=== PATIENT | female | born 1940 | race Caucasian/White ===

== ENCOUNTER → 2017-10-05 | Outpatient (CLI) | payer MEDICARE | END | disposition home or self-care (01) | LOC: CVU 12:39 | PROVIDERS: ATTEND Internal Medicine Cardiovascular Disease | DX: I65.23 Occlusion and stenosis of bilateral carotid arteries (principal); I31.3 Pericardial effusion (noninflammatory); I35.8 Other nonrheumatic aortic valve disorders; I44.7 Left bundle-branch block, unspecified; E78.5 Hyperlipidemia, unspecified | CPT/HCPCS: 93306; 93880 ==

== ENCOUNTER 2020-09-24 21:58 | Emergency (ER) | payer MEDICARE ==
[~2020-09-24] VITALS: Ht 165.1 cm; Wt 95.1 kg
--- NOTE | 2020-09-24 22:30 | NUR ---
PT SEEN IN LOBBY BY PA. AWARE OF PLAN FOR LABS/CT. PENDING ROOM.
[2020-09-24 22:42] LABS: BASOPHILS % (AUTO) 1 % (0-1); EOSINOPHILS % (AUTO) 2 % (1-7); LYMPHOCYTES % (AUTO) 27 % (22-44); MEAN CORPUSCULAR HEMOGLOBIN 32.7 pg (27.0-34.8); MEAN CORPUSCULAR HGB CONC 35.2 g/dL (32.4-35.8); MEAN PLATELET VOLUME 8.6 fL (7.4-10.4); MONOCYTES % (AUTO) 8 % (2-9); NEUTROPHILS % (AUTO) 63 % (42-75); PLATELET COUNT 274 x10^3/uL (130-400); RED BLOOD COUNT 4.87 x10^6/uL (3.82-5.3); RED CELL DISTRIBUTION WIDTH 13.4 % (9.6-15.2)
[2020-09-24 22:43] LABS: MD NO
[2020-09-24 22:55] LABS: ALANINE AMINOTRANSFERASE 24 U/L (12-78); ALBUMIN 3.7 g/dL (3.4-5.0); ANION GAP 11 mmol/L (5-15); CHLORIDE 105 mmol/L (98-107); CREATININE 0.65 mg/dL (0.55-1.02)
[2020-09-24 22:59] LABS: ALKALINE PHOSPHATASE 127 U/L (45-117); BILIRUBIN,TOTAL 0.4 mg/dL (0.2-1.0); TOTAL PROTEIN 7.5 g/dL (6.4-8.2); TROPONIN I < 0.015 ng/mL (0.000-0.045)
[2020-09-25] MEDS ORDERED: KETOROLAC 30 MG/1 ML ONE (00:05)
[2020-09-25] MEDS ORDERED: DIPHENHYDRAMINE 50 MG/ML, 1ML ONE (00:05)
[2020-09-25] MEDS ORDERED: PROCHLORPERAZINE 5 MG/ML, 2ML ONE (00:05)
[2020-09-25] MEDS ORDERED: KETOROLAC 30 MG/1 ML IVPush ONE (00:30)
[2020-09-25] MEDS ORDERED: PROCHLORPERAZINE 5 MG/ML, 2ML IVPush ONE (00:30)
[2020-09-25] MEDS ORDERED: DIPHENHYDRAMINE 50 MG/ML, 1ML IVPush ONE (00:30)
--- NOTE | 2020-09-25 01:00 | NUR ---
PT REPORTS [facility]OTT HAS DECREASED FROM 09/07 TO 2-3/.
[2020-09-25 01:29] VITALS: BP 136/74
== END 2020-09-25 01:31 | disposition home or self-care (01) ==
LOC: ED 09-25 01:10
DX: R51.9 Headache, unspecified (principal); M54.2 Cervicalgia; R07.9 Chest pain, unspecified; I10 Essential (primary) hypertension; E78.00 Pure hypercholesterolemia, unspecified
CPT/HCPCS: 36415; 70450; 71045; 80053; 84484; 85025; 96374; 96375; 96376; 99285; J0780; J1200; J1885